=== PATIENT | male | born 1935 | race Caucasian/White ===

== ENCOUNTER 2022-04-29 12:18 | Emergency (ER) | payer MEDICARE, BC ==
[~2022-04-29] VITALS: Ht 172.7 cm; Wt 76.2 kg
[~2022-04-29 12:18] MED LIST: ACID1TAB12 PO; ALBU1.257 IH; CHOL100044 PO; FINA5TAB3 PO; OMEG1CAP PO; SILO8CAP2 PO; VITA400C24 PO
--- NOTE | 2022-04-29 12:25 | NUR ---
left eye pain 8/10 since this morning, eye acuity:B 20/40, R 20/40, L 20/70
[2022-04-29] MEDS ORDERED: FLUORESCEIN SODIUM OPHTH 1 EA STRIP ONE (14:13)
--- NOTE | 2022-04-29 14:16 | NUR ---
DR SOTELO AT BEDSIDE
[2022-04-29] MEDS ORDERED: FLUORESCEIN SODIUM OPHTH 1 EA STRIP OP ONE (14:30)
[2022-04-29] MEDS ORDERED: TETRACAINE HCL 0.5% OPHTALMIC 15 ML BOTTLE OP ONE (14:30)
[2022-04-29] MEDS ORDERED: ERYT3.5O9 LEFTEYE (14:40)
[2022-04-29] MEDS ORDERED: DEXT15DR6 LEFTEYE (14:40)
[2022-04-29 15:03] VITALS: BP 151/94
--- NOTE | 2022-04-29 15:03 | NUR ---
Patient discharged to home in stable condition. Written and verbal after care instructions given. Patient verbalizes understanding of instruction.
== END 2022-04-29 15:04 | disposition home or self-care (01) ==
LOC: ER 12:21
DX: S05.02XA Injury of conjunctiva and corneal abrasion without foreign body, left eye, initial encounter (principal); F17.200 Nicotine dependence, unspecified, uncomplicated; Z90.5 Acquired absence of kidney; Z88.8 Allergy status to other drugs, medicaments and biological substances; Z79.899 Other long term (current) drug therapy; X58.XXXA Exposure to other specified factors, initial encounter; Y93.89 Activity, other specified; Y92.89 Other specified places as the place of occurrence of the external cause; Y99.8 Other external cause status

== ENCOUNTER 2022-06-14 15:12 | Emergency (ER) | payer MEDICARE, BC ==
[~2022-06-14] VITALS: Ht 172.7 cm; Wt 74.8 kg
[~2022-06-14 15:12] MED LIST changes: +DEXT15DR6 LEFTEYE; +ERYT3.5O9 LEFTEYE
[2022-06-14] MEDS ORDERED: HYDROCODONE/APAP 5/325MG TABLET PO ONE (15:30)
[2022-06-14] MEDS ORDERED: HYDROCODONE/APAP 5/325MG TABLET ONE (15:34)
--- NOTE | 2022-06-14 15:36 | NUR ---
NORCO 5-325 ADMINISTERED INDICATED.
--- NOTE | 2022-06-14 15:37 | NUR ---
PT TAKEN TO RADIOLOGY FOR CT
[2022-06-14] MEDS ORDERED: HYDR-4209 PO ×2 (16:31→18:01)
[2022-06-14 18:04] VITALS: BP 126/75
--- NOTE | 2022-06-14 18:04 | NUR ---
Patient discharged to home in stable condition. Written and verbal after care instructions given. Patient verbalizes understanding of instruction.
== END 2022-06-14 18:05 | disposition home or self-care (01) ==
LOC: ER 15:15
DX: S39.012A Strain of muscle, fascia and tendon of lower back, initial encounter (principal); S70.01XA Contusion of right hip, initial encounter; Z98.890 Other specified postprocedural states; Z88.8 Allergy status to other drugs, medicaments and biological substances; Z79.899 Other long term (current) drug therapy; W19.XXXA Unspecified fall, initial encounter; Y93.89 Activity, other specified; Y92.89 Other specified places as the place of occurrence of the external cause; Y99.8 Other external cause status
CPT/HCPCS: 72131-TC; 72170-TC

== ENCOUNTER 2023-06-15 17:13 | Inpatient (IN) | payer MEDICARE, BC ==
[~2023-06-15] VITALS: Ht 172.7 cm; Wt 78.0 kg
[~2023-06-15 17:13] MED LIST changes: +HYDR-4209 PO
[2023-06-15] MEDS ORDERED: ONDANSETRON HCL/PF 4 MG/2 ML VIAL ONE (17:37)
[2023-06-15] MEDS ORDERED: ACETAMINOPHEN ES 500 MG TABLET ONE (17:37)
[2023-06-15] MEDS ORDERED: ONDANSETRON HCL/PF 4 MG/2 ML VIAL IVP ONE (18:00)
[2023-06-15] MEDS ORDERED: ACETAMINOPHEN ES 500 MG TABLET PO ONE (18:00)
[2023-06-15] MEDS ORDERED: IV NS 0.9% 1,000 ML BAG IV ONE (18:00)
[2023-06-15 19:14] LABS: BASOPHILS % (AUTO) 0.6 % (0.0-2.0); EOSINOPHILS % (AUTO) 0.1 % (0.0-6.0); HEMATOCRIT 41 % (39-51); HEMOGLOBIN 13.3 g/dL (13.5-17.5); LYMPHOCYTES # (AUTO) 0.7 K/uL (0.8-4.8); LYMPHOCYTES % (AUTO) 10.7 % (20.0-44.0); MEAN CORPUSCULAR HEMOGLOBIN 31 PG (26.0-33.0); MEAN CORPUSCULAR HGB CONC 33 g/dl (31.0-36.0); MEAN CORPUSCULAR VOLUME 96 fL (80-96); MONOCYTES # (AUTO) 0.6 K/uL (0.1-1.30); MONOCYTES % (AUTO) 8.4 % (2.0-12.0); NEUTROPHILS # (AUTO) 5.4 K/uL (1.8-8.9); NEUTROPHILS % (AUTO) 80.2 % (43.0-81.0); PLATELET COUNT (AUTO) 95 K/uL (150-450); RED BLOOD CELL COUNT(AUTO) 4.24 MIL/uL (4.5-6.0); RED CELL DISTRIBUTION WIDTH 14.6 % (11.5-15.0); WHITE BLOOD COUNT (AUTO) 6.7 K/uL (4.3-11.0)
[2023-06-15 19:28] LABS: INR 1.17 (0.91-1.10); PARTIAL THROMBOPLASTIN TIME 30.2 SEC (24.3-34.3); PROTHROMBIN TIME 12.2 SECS (9.2-11.1)
[2023-06-15 19:39] LABS: CALCIUM, SERUM 8.4 mg/dL (8.5-10.1); CARBON DIOXIDE 21 mmol/L (21-32); CHLORIDE 107 mmol/L (98-107); CREATININE 1.1 mg/dL (0.6-1.3); GLUCOSE 99 mg/dL (74-106); POTASSIUM 3.6 mmol/L (3.5-5.1); SODIUM SERUM 140 mmol/L (136-145); UREA NITROGEN, BLOOD 19 mg/dL (7-18)
[2023-06-15 19:53] LABS: ALANINE AMINOTRANSFERASE 22 U/L (12-78); ALBUMIN 3.2 g/dL (3.4-5.0); ALKALINE PHOSPHATASE 75 U/L (46-116); ASPARTATE AMINOTRANSFERASE 20 U/L (15-37); BILIRUBIN,DIRECT 0.3 mg/dL (0.0-0.2); BILIRUBIN,TOTAL 1.1 mg/dL (0.2-1.0); MAGNESIUM 1.4 mg/dL (1.8-2.4); NT-PRO BNP 2202 pg/mL (0-125); TOTAL PROTEIN, SERUM 6.4 g/dL (6.4-8.2)
[2023-06-15 20:37] LABS: APPEARANCE,URINE CLEAR (CLEAR); BILIRUBIN,URINE NEGATIVE (NEGATIVE); BLOOD, URINE TRACE-INTA Ery/uL (NEGATIVE); COLOR,URINE YELLOW (YELLOW); KETONES,URINE 2+ mg/dL (NEGATIVE); LEUKOCYTE ESTERASE ,URINE NEGATIVE (NEGATIVE); NITRITE, URINE NEGATIVE (NEGATIVE); PH,URINE 6.5 (5.0-8.0); PROTEIN,URINE TRACE mg/dl (NEGATIVE); UGLUCOSE NEGATIVE (NEGATIVE)
[2023-06-15 20:52] LABS: ADD URINE CULTURE NO; BACTERIA,URINE None seen /HPF (None Seen); MUCUS,URINE Few /LPF (None Seen); SQUAMOUS EPITHELIAL CELL,UR 0-2 /HPF (None Seen); WBC,URINE 0-2 /HPF (0-3)
[2023-06-15 21:01] LABS: ANISOCYTOSIS 1+; BAND % (MANUAL) 1 % (0.0-5.0); EOSINOPHILS % (MANUAL) 1 % (0-4); LYMPHOCYTES % (MANUAL) 10 % (16-48); MONOCYTES % (MANUAL) 4 % (0-11.0); NEUTROPHILS % (MANUAL) 84 (42-76); PLATELET ESTIMATE DECREASED
[2023-06-15] MEDS ORDERED: IPRATROPIUM NEB FS 0.5 MG/2.5 ML AMPUL.NEB NEB ONE (22:30)
[2023-06-15] MEDS ORDERED: predniSONE 50 MG TABLET PO ONE (22:30)
[2023-06-15] MEDS ORDERED: ALBUTEROL FS 2.5 MG/0.5 ML VIAL.NEB NEB ONE (22:30)
[2023-06-15] MEDS ORDERED: methylPREDNISolone SOD SUCC 125 MG/2ML VIAL ONE (22:59)
[2023-06-15] MEDS ORDERED: methylPREDNISolone SOD SUCC 125 MG/2ML VIAL IV ONE (23:00)
[2023-06-15] MEDS ORDERED: ONDANSETRON HCL/PF 4 MG/2 ML VIAL IVP PRN (23:30)
[2023-06-15] MEDS ORDERED: POLYVINYL ALCOHOL 15 ML BOTTLE OP ONE (23:30)
[2023-06-15] MEDS ORDERED: ERYTHROMYCIN BASE OPHTH 3.5 GM TUBE LEFTEYE SCH (23:30)
[2023-06-16] MEDS ORDERED: ENOXAPARIN SODIUM 40 MG/0.4 ML DISP.SYRIN SQ ONE (02:54)
[2023-06-16] MEDS: ENOXAPARIN SODIUM 40 MG/0.4 ML DISP.SYRIN SQ SCH ×2 (02:57→21:23)
[2023-06-16 03:47] VITALS: BP 131/77; TEMP 98.3; O2SAT 97
[2023-06-16] MEDS: IV NS 0.9% 1,000 ML IV PRN ×2 (03:47→18:53)
[2023-06-16] MEDS ORDERED: ENOXAPARIN SODIUM 40 MG/0.4 ML DISP.SYRIN SQ SCH (06:00)
[2023-06-16] MEDS ORDERED: MAGNESIUM OXIDE 400 MG TABLET PO ONE ×2 (06:00→10:00)
[2023-06-16 07:04] LABS: BASOPHILS % (AUTO) 0.2 % (0.0-2.0); HEMATOCRIT 42 % (39-51); LYMPHOCYTES # (AUTO) 0.9 K/uL (0.8-4.8); LYMPHOCYTES % (AUTO) 12.3 % (20.0-44.0); MEAN CORPUSCULAR HEMOGLOBIN 32 PG (26.0-33.0); MEAN CORPUSCULAR HGB CONC 33 g/dl (31.0-36.0); MEAN CORPUSCULAR VOLUME 95 fL (80-96); MONOCYTES # (AUTO) 0.2 K/uL (0.1-1.30); MONOCYTES % (AUTO) 2.5 % (2.0-12.0); NEUTROPHILS # (AUTO) 6.1 K/uL (1.8-8.9); PLATELET COUNT (AUTO) 109 K/uL (150-450); RED CELL DISTRIBUTION WIDTH 14.4 % (11.5-15.0); WHITE BLOOD COUNT (AUTO) 7.2 K/uL (4.3-11.0)
[2023-06-16 07:12] LABS: CALCIUM, SERUM 8.7 mg/dL (8.5-10.1); MAGNESIUM 1.7 mg/dL (1.8-2.4); PHOSPHORUS 3.4 mg/dL (2.5-4.9); POTASSIUM 3.8 mmol/L (3.5-5.1)
[2023-06-16 08:00] VITALS: BP 123/74; TEMP 98.1; O2SAT 97
[2023-06-16] MEDS ORDERED: MULT-465 PO (08:32)
[2023-06-16] MEDS ORDERED: DORZ10DR10 EACHEYE (08:32)
[2023-06-16] MEDS ORDERED: ATOR40TA PO (08:32)
[2023-06-16] MEDS ORDERED: TADA5TAB13 PO (08:32)
[2023-06-16] MEDS ORDERED: FAMO40TA70 PO (08:32)
[2023-06-16] MEDS ORDERED: LATA7.5D EACHEYE (08:32)
[2023-06-16] MEDS ORDERED: CARB15DR EACHEYE (08:32)
[2023-06-16] MEDS ORDERED: MAGNESIUM PO (08:32)
[2023-06-16] MEDS ORDERED: IRON PO (08:32)
[2023-06-16] MEDS ORDERED: APIX2.5T PO (08:32)
[2023-06-16] MEDS ORDERED: FLUT1BLS IH (08:32)
[2023-06-16] MEDS: CHOLECALCIFEROL 1,000 UNIT TABLET (VIT D3) PO SCH (09:05)
[2023-06-16] MEDS: ACIDOPHILUS/BULGARICUS 1 EACH TAB.CHEW PO SCH (09:05)
[2023-06-16] MEDS: ERYTHROMYCIN BASE OPHTH 3.5 GM TUBE LEFTEYE SCH ×3 (12:47→21:15)
[2023-06-16] MEDS ORDERED: CEFAZOLIN 1 GM VIAL IM SCH (13:30)
[2023-06-16] MEDS ORDERED: CEFAZOLIN 2 GM in IV D5W 100 ML IV SCH (14:00)
[2023-06-16] MEDS ORDERED: VANCOMYCIN 1.5 GM in IV D5W 500 ML IV ONE (15:00)
[2023-06-16 16:00] VITALS: BP 123/64; TEMP 98; O2SAT 98
[2023-06-16 20:00] VITALS: BP 138/78; TEMP 98; O2SAT 97
[2023-06-16] MEDS: SILODOSIN PO SCH (21:10)
[2023-06-16] MEDS: LATANOPROST EYE DROP 0.005% 2.5 ML BOTTLE EACHEYE SCH (21:10)
[2023-06-17] MEDS: ALBUTEROL FS 2.5 MG/0.5 ML VIAL.NEB NEB SCH ×4 (01:26→19:30)
[2023-06-17] MEDS: IPRATROPIUM NEB FS 0.5 MG/2.5 ML AMPUL.NEB NEB SCH ×4 (01:26→19:30)
[2023-06-17 04:00] VITALS: BP 133/74; TEMP 98.6; O2SAT 95
[2023-06-17 06:45] LABS: CALCIUM, SERUM 8.7 mg/dL (8.5-10.1); CREATININE 0.9 mg/dL (0.6-1.3); POTASSIUM 3.9 mmol/L (3.5-5.1)
[2023-06-17 08:00] VITALS: BP 136/76; TEMP 98.1; O2SAT 98
[2023-06-17] MEDS: CHOLECALCIFEROL 1,000 UNIT TABLET (VIT D3) PO SCH (08:31)
[2023-06-17] MEDS: ACIDOPHILUS/BULGARICUS 1 EACH TAB.CHEW PO SCH (08:31)
[2023-06-17] MEDS: ERYTHROMYCIN BASE OPHTH 3.5 GM TUBE LEFTEYE SCH ×4 (08:33→21:42)
[2023-06-17] MEDS: IV NS 0.9% 1,000 ML IV PRN (12:30)
[2023-06-17] MEDS: GUAIFENESIN LA 600 MG TABLET.SA PO SCH ×2 (14:22→21:46)
[2023-06-17] MEDS ORDERED: VANCOMYCIN 1.25 GM in IV D5W 250 ML IV SCH (15:00)
[2023-06-17 16:00] VITALS: BP 134/85; TEMP 98.7; O2SAT 97
[2023-06-17] MEDS: TIMOLOL EACHEYE SCH (17:40)
[2023-06-17] MEDS: DORZOLAMIDE EACHEYE SCH (17:40)
[2023-06-17 17:46] VITALS: TEMP 98.9
[2023-06-17 20:00] VITALS: BP 128/83; TEMP 101.8; O2SAT 95
[2023-06-17] MEDS: ENOXAPARIN SODIUM 40 MG/0.4 ML DISP.SYRIN SQ SCH (21:47)
[2023-06-17] MEDS: LATANOPROST EYE DROP 0.005% 2.5 ML BOTTLE EACHEYE SCH (21:48)
[2023-06-17] MEDS: SILODOSIN PO SCH ×2 (21:49→22:18)
[2023-06-17] MEDS: ACETAMINOPHEN 325 MG TABLET PO PRN (22:04)
[2023-06-18] MEDS: IPRATROPIUM NEB FS 0.5 MG/2.5 ML AMPUL.NEB NEB SCH ×2 (01:30→07:32)
[2023-06-18] MEDS: ALBUTEROL FS 2.5 MG/0.5 ML VIAL.NEB NEB SCH ×2 (01:30→07:33)
[2023-06-18 04:00] VITALS: BP 117/75; TEMP 99; O2SAT 96
[2023-06-18] MEDS: IV NS 0.9% 1,000 ML IV PRN ×2 (04:30→17:34)
[2023-06-18 06:33] LABS: CALCIUM, SERUM 8.3 mg/dL (8.5-10.1); POTASSIUM 4.1 mmol/L (3.5-5.1)
[2023-06-18 08:00] VITALS: BP 129/71; TEMP 98.1; O2SAT 96
[2023-06-18] MEDS: ACIDOPHILUS/BULGARICUS 1 EACH TAB.CHEW PO SCH (08:27)
[2023-06-18] MEDS: DORZOLAMIDE EACHEYE SCH ×3 (08:27→21:15)
[2023-06-18] MEDS: GUAIFENESIN LA 600 MG TABLET.SA PO SCH ×2 (08:27→21:16)
[2023-06-18] MEDS: TIMOLOL EACHEYE SCH ×3 (08:27→21:15)
[2023-06-18] MEDS: CHOLECALCIFEROL 1,000 UNIT TABLET (VIT D3) PO SCH (08:27)
[2023-06-18] MEDS: ERYTHROMYCIN BASE OPHTH 3.5 GM TUBE LEFTEYE SCH ×4 (08:47→21:28)
[2023-06-18] MEDS: CEFEPIME 2 GM in IV D5W 100 ML IV SCH ×2 (11:47→23:39)
[2023-06-18] MEDS: ALBUTEROL SULFATE 8 GM HFA.AER.AD IH SCH ×2 (13:55→18:40)
[2023-06-18] MEDS: IPRATROPIUM BROMIDE 14 GM INHALER (or 12.9 GM) IH SCH ×2 (13:55→18:40)
[2023-06-18 16:00] VITALS: BP 134/84; TEMP 99.2; O2SAT 95
[2023-06-18] MEDS: ACETAMINOPHEN 325 MG TABLET PO PRN (17:30)
[2023-06-18] MEDS: LATANOPROST EYE DROP 0.005% 2.5 ML BOTTLE EACHEYE SCH (21:14)
[2023-06-18] MEDS: ENOXAPARIN SODIUM 40 MG/0.4 ML DISP.SYRIN SQ SCH (21:20)
[2023-06-19] VITALS: BP 129/89; TEMP 98.3; O2SAT 93
[2023-06-19] MEDS: IPRATROPIUM BROMIDE 14 GM INHALER (or 12.9 GM) IH SCH ×4 (01:30→21:32)
[2023-06-19] MEDS: ALBUTEROL SULFATE 8 GM HFA.AER.AD IH SCH ×4 (01:30→21:32)
[2023-06-19 06:13] LABS: BASOPHILS % (AUTO) 0.2 % (0.0-2.0); EOSINOPHILS % (AUTO) 0.6 % (0.0-6.0); HEMATOCRIT 44 % (39-51); HEMOGLOBIN 13.9 g/dL (13.5-17.5); LYMPHOCYTES # (AUTO) 1.8 K/uL (0.8-4.8); LYMPHOCYTES % (AUTO) 32.6 % (20.0-44.0); MEAN CORPUSCULAR HEMOGLOBIN 32 PG (26.0-33.0); MEAN CORPUSCULAR HGB CONC 32 g/dl (31.0-36.0); MEAN CORPUSCULAR VOLUME 100 fL (80-96); MONOCYTES # (AUTO) 0.7 K/uL (0.1-1.30); MONOCYTES % (AUTO) 12.9 % (2.0-12.0); NEUTROPHILS % (AUTO) 53.7 % (43.0-81.0); PLATELET COUNT (AUTO) 97 K/uL (150-450); RED BLOOD CELL COUNT(AUTO) 4.42 MIL/uL (4.5-6.0); RED CELL DISTRIBUTION WIDTH 16.2 % (11.5-15.0); WHITE BLOOD COUNT (AUTO) 5.5 K/uL (4.3-11.0)
[2023-06-19 07:20] LABS: ALBUMIN 2.6 g/dL (3.4-5.0); BILIRUBIN,TOTAL 0.5 mg/dL (0.2-1.0); CALCIUM, SERUM 8.4 mg/dL (8.5-10.1); CREATININE 0.8 mg/dL (0.6-1.3); MAGNESIUM 1.8 mg/dL (1.8-2.4); PHOSPHORUS 3.6 mg/dL (2.5-4.9); POTASSIUM 3.7 mmol/L (3.5-5.1); TOTAL PROTEIN, SERUM 5.9 g/dL (6.4-8.2)
[2023-06-19] MEDS: CHOLECALCIFEROL 1,000 UNIT TABLET (VIT D3) PO SCH (09:03)
[2023-06-19] MEDS: ACIDOPHILUS/BULGARICUS 1 EACH TAB.CHEW PO SCH (09:03)
[2023-06-19] MEDS: GUAIFENESIN LA 600 MG TABLET.SA PO SCH ×2 (09:03→21:36)
[2023-06-19] MEDS: PROSOURCE / PROSTAT (PYXIS) 30 ML UDC PO SCH ×2 (09:04→16:13)
[2023-06-19 09:20] VITALS: BP 139/81; TEMP 98.6; O2SAT 96
[2023-06-19] MEDS: IV NS 0.9% 1,000 ML IV PRN (09:51)
[2023-06-19] MEDS: ERYTHROMYCIN BASE OPHTH 3.5 GM TUBE LEFTEYE SCH ×4 (09:58→21:33)
[2023-06-19] MEDS: CEFEPIME 2 GM in IV D5W 100 ML IV SCH (12:39)
[2023-06-19 16:01] VITALS: BP 131/72; TEMP 98.7; O2SAT 95
[2023-06-19] MEDS: DORZOLAMIDE EACHEYE SCH (16:15)
[2023-06-19] MEDS: TIMOLOL EACHEYE SCH (16:15)
[2023-06-19] MEDS: SILODOSIN PO SCH (21:31)
[2023-06-19] MEDS: LATANOPROST EYE DROP 0.005% 2.5 ML BOTTLE EACHEYE SCH (21:33)
[2023-06-19] MEDS: ENOXAPARIN SODIUM 40 MG/0.4 ML DISP.SYRIN SQ SCH (22:00)
[2023-06-20] VITALS: BP 139/88; TEMP 98.5; O2SAT 93
[2023-06-20] MEDS: IV NS 0.9% 1,000 ML IV PRN (00:40)
[2023-06-20] MEDS: IPRATROPIUM BROMIDE 14 GM INHALER (or 12.9 GM) IH SCH (00:41)
[2023-06-20] MEDS: CEFEPIME 2 GM in IV D5W 100 ML IV SCH ×2 (00:41→12:02)
[2023-06-20] MEDS: ALBUTEROL SULFATE 8 GM HFA.AER.AD IH SCH (00:42)
[2023-06-20 08:00] VITALS: BP 147/86; TEMP 98.4; O2SAT 93
[2023-06-20 08:03] LABS: CREATININE 0.8 mg/dL (0.6-1.3); POTASSIUM 3.3 mmol/L (3.5-5.1)
[2023-06-20] MEDS: TIMOLOL EACHEYE SCH (09:36)
[2023-06-20] MEDS: DORZOLAMIDE EACHEYE SCH (09:36)
[2023-06-20] MEDS: ERYTHROMYCIN BASE OPHTH 3.5 GM TUBE LEFTEYE SCH ×2 (09:37→13:03)
[2023-06-20] MEDS: GUAIFENESIN LA 600 MG TABLET.SA PO SCH (09:42)
[2023-06-20] MEDS: ACIDOPHILUS/BULGARICUS 1 EACH TAB.CHEW PO SCH (09:42)
[2023-06-20] MEDS: POTASSIUM CHLORIDE 20 MEQ TAB.PRT.SR PO SCH ×2 (09:42→09:55)
[2023-06-20] MEDS: PROSOURCE / PROSTAT (PYXIS) 30 ML UDC PO SCH (09:43)
[2023-06-20] MEDS: CHOLECALCIFEROL 1,000 UNIT TABLET (VIT D3) PO SCH (09:55)
[2023-06-20] MEDS: ACETAMINOPHEN 325 MG TABLET PO PRN (11:16)
== END 2023-06-20 15:45 | DRG 178 ==
LOC: ER 17:15 → TELE1 06-16 02:06 → MEDSG1 06-16 03:39
PROVIDERS: ADMIT Nurse Practitioner Acute Care
DX: U07.1 COVID-19 (principal); E44.1 Mild protein-calorie malnutrition; K76.1 Chronic passive congestion of liver; E83.42 Hypomagnesemia; E86.0 Dehydration; E88.09 Other disorders of plasma-protein metabolism, not elsewhere classified; I48.0 Paroxysmal atrial fibrillation; Z79.01 Long term (current) use of anticoagulants; Z90.5 Acquired absence of kidney; Z20.822 Contact with and (suspected) exposure to COVID-19; R74.01 Elevation of levels of liver transaminase levels; Z68.26 Body mass index [BMI] 26.0-26.9, adult; N40.0 Benign prostatic hyperplasia without lower urinary tract symptoms
CPT/HCPCS: 36415; 71045-TC; 80048-TC; 80053-TC; 80076-TC; 81001; 82728-TC; 83605-TC; 83615-TC; 83735-TC; 83880; 84100-TC; 84484-TC; 85025-TC; 85378-TC; 85730-TC; 86140-TC; 87040-TC; 87086-TC; 94799-TC; 97112-TC; 97116-TC; 97530-TC; A4223; C9803; G0378; J0690; J0692; J1650; J2405; J2930; J3370; J3490; J7030; J7060; J7120